=== PATIENT | female | born 1955 | race Caucasian/White ===

== ENCOUNTER 2016-07-09 10:57 | Day surgery (SDC) | payer BC ==
[~2016-07-09 10:57] MED LIST: Betamethasone Acetate/Betamethasone Sod Phosphate 30 MG/5 ML MDV ONE; Lidocaine 2% 5 ML SDV ONE; Ropivacaine 0.5% 5 MG/ML 30 ML SDV ONE
[2016-07-09] MEDS ORDERED: Ropivacaine 0.5% 5 MG/ML 30 ML SDV ONE (11:54)
[2016-07-09] MEDS ORDERED: Betamethasone Acetate/Betamethasone Sod Phosphate 30 MG/5 ML MDV ONE (11:54)
[2016-07-09] MEDS ORDERED: Lidocaine 2% 5 ML SDV ONE (11:54)
--- NOTE | 2016-07-09 21:15 | OR ---
SURGEON: Diamond Paez D.O. DATE OF PROCEDURE: 07/09/2016 OR STAFF PRESENT: 1. Diandra Denis RN. 2. Qi Vanegas RN. PROPERTY AND CASUALTY INSURANCE AGENT: RT Ashlyn. WOUND CLASSIFICATION: I. PREOPERATIVE DIAGNOSES: 1. Failed back surgery syndrome. 2. Chronic pain syndrome. POSTOPERATIVE DIAGNOSES: 1. Failed back surgery syndrome. 2. Chronic pain syndrome. PROCEDURES PERFORMED: 1. Caudal epidural steroid injection under fluoroscopy. 2. Fluoroscopic guidance for needle placement. 3. Local with oral Valium for sedation. SCREENING QUESTIONS: The patient answered "no" to all of the following questions: 1. Are you allergic to latex? 2. Do you have a bleeding disorder? 3. Do you have any current local or systemic infections? 4. Are you taking any anti-inflammatories or blood thinners? 5. Do you have any joint replacements, heart valve replacements, or a pacemaker? DESCRIPTION OF PROCEDURE: The patient had the procedure thoroughly explained including all possible risks, benefits and alternatives. Consent was signed in my clinic indicating understanding and willingness to proceed. The patient presented to [facility] [place] and was escorted to the dressing room to disrobe and change into a hospital gown. Preoperative vital signs were taken and stable. The patient reported that Valium was taken prior to the procedure. The patient was brought back to the procedure room and placed in the prone position on the procedure room table. A pillow was placed under the hips in order to flatten the lumbar lordosis. The back was prepped with ChloraPrep and sterilely draped. All personnel in the operating room were dressed in appropriate attire including surgical scrubs, head and shoe covers. This was to ensure sterility while in the treatment room. During the time fluoroscopy was in use, all personnel in the operating room wore lead childress with thyroid collars. Sterile technique was used throughout the procedure. The patient was awake and conversant throughout the procedure. There was no evidence of infection at the site of needle insertion. Skeletal landmarks were identified under fluoroscopy for the caudal epidural. Skin was anesthetized with 2% lidocaine with a sterile 27-gauge 1.5 inch needle. Then a 20-gauge Tuohy epidural needle was placed in the epidural space with loss of resistance technique under fluoroscopic guidance. No heme, cerebrospinal fluid, or paresthesias were noted. Isovue-200 contrast dye was injected in 0.2 cubic centimeter increments and seen to outline the epidural space in both AP and lateral views. There was no intravascular flow pattern observed under live fluoroscopy. Then 12 milligrams of Celestone was slowly injected after negative aspiration. The patient tolerated the procedure well. Vital signs were stable during and after the procedure. The staff escorted the patient to the recovery area and the patient was released in stable condition after a brief stay in the recovery room monitored by the nurse. The patient was given both oral and written discharge and follow up instructions with recommendation to follow up given for 2-3 weeks. The patient voiced understanding including understanding of those signs and symptoms that would require emergency care. The patient knows how to contact the office if there are any additional problems or questions in the meantime. PREOPERATIVE PAIN: /10. POSTOPERATIVE PAIN: 10. FOLLOWUP: Follow up in the pain clinic in 3 weeks. NILA / ALLISON /[id number] KATHERINE
== END 2016-07-09 12:53 | disposition home or self-care (01) ==
LOC: MW.SDS 10:57
PROVIDERS: ATTEND Anesthesiology
DX: G89.4 Chronic pain syndrome (principal); M96.1 Postlaminectomy syndrome, not elsewhere classified; F41.9 Anxiety disorder, unspecified; E78.00 Pure hypercholesterolemia, unspecified; Z88.1 Allergy status to other antibiotic agents; Z79.899 Other long term (current) drug therapy; Z90.710 Acquired absence of both cervix and uterus; Z98.51 Tubal ligation status; Z98.890 Other specified postprocedural states; F17.200 Nicotine dependence, unspecified, uncomplicated; F31.9 Bipolar disorder, unspecified; M48.06 Spinal stenosis, lumbar region; M51.16 Intervertebral disc disorders with radiculopathy, lumbar region
CPT/HCPCS: 62323; J0702; J2795

== ENCOUNTER 2016-10-20 11:37 | Day surgery (SDC) | payer BC ==
--- NOTE | 2016-10-20 12:05 | PCM.PREANE ---
Preanesthetic Assessment - Anesthesia/Transfusion/Family Hx Anesthesia History: Prior Anesthesia Without Reaction Family History of Anesthesia Reaction: No Transfusion History: No Prior Transfusion(s) Intubation History: Unknown - Review of Systems General: No Symptoms Pulmonary: No Symptoms Cardiovascular: No Symptoms Gastrointestinal: No Symptoms Neurological: No Symptoms Other: Reports: None - Physical Assessment Height: 1.63 m Weight: 74.389 kg ASA Class: 2 Mental Status: Alert & Oriented x3 Airway Class: Mallampati = 2 Dentition: Reports: Dentures (upper) Thyro-Mental Finger Breadths: 2 Mouth Opening Finger Breadths: 3 ROM/Head Extension: Full Lungs: Clear to Auscultation, Normal Respiratory Effort Cardiovascular: Regular Rate, Regular Rhythm - Allergies Allergies/Adverse Reactions: Allergies Allergy/AdvReac Type Severity Reaction Status Date / Time clindamycin Allergy Rash Verified 10/14/16 15:06 doxycycline Allergy Rash Verified 10/14/16 15:06 - Blood Blood Available: No - Anesthesia Plan Pre-Op Medication Ordered: None - Acknowledgements Anesthesia Type Planned: MAC Pt an Appropriate Candidate for the Planned Anesthesia: Yes Alternatives and Risks of Anesthesia Discussed w Pt/Guardian: Yes Pt/Guardian Understands and Agrees with Anesthesia Plan: Yes PreAnesthesia Questionnaire HEENT History: Reports: Cataract, Glaucoma Other HEENT History: uses reading glasses Genitourinary History: Reports: Renal Calculus 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: Musculoskeletal History: Reports: Back Pain, Chronic Other Musculoskeletal History: spinal stenosis Psychiatric History: Reports: Anxiety, Bipolar (affective disorder), Depression - Past Surgical History HEENT Surgical History: Reports: Cataract Surgery, Tonsillectomy Female Surgical History: Reports: Section, Hysterectomy, Kidney stone extraction, Tubal Ligation Other Female Surgeries/Procedures: insertion of Nephrostomy tube Neurological Surgical History: Reports: Discectomy Musculoskeletal Surgical History: Reports: None - SUBSTANCE USE Smoking Status *Q: Current Every Day Smoker Tobacco Use Within Last Twelve Months: Cigarettes Recreational Drug Use History: No - HOME MEDS Home Medications: Home Meds ALPRAZolam [Xanax] 0.5 mg PO TID 10/14/16 [History] Cyclobenzaprine HCl 10 mg PO TID PRN 10/14/16 [History] DULoxetine HCl [Cymbalta] 30 mg PO QAM 10/14/16 [History] DULoxetine HCl [Duloxetine HCl] 60 mg PO BEDTIME 10/14/16 [History] Gabapentin [Neurontin] 300 mg PO TID 10/14/16 [History] Gemfibrozil 600 mg PO BID 10/14/16 [History] Hydrocodone/Acetaminophen [Hydrocodon-Acetaminoph 7.5-325] 1 tab PO Q6H PRN [History] Ibuprofen 800 mg PO ASDIRECTED PRN 10/14/16 [History] Bskmvhmb-Daygutjsbq-Busjztoqig-Baclofen-Cloonadine 1 dose TOP ASDIRECTED [History] Latanoprost [Xalatan 0.005% Ophth Soln] 1 drop EYEBOTH BEDTIME 10/14/16 [History ] QUEtiapine Fumarate [Seroquel Xr] 800 mg PO BEDTIME 10/14/16 [History] Temazepam 60 mg PO BEDTIME 10/14/16 [History] lamoTRIgine 100 mg PO DAILY 10/14/16 [History]
[2016-10-20] MEDS ORDERED: Lidocaine 2% 5 ML SDV ONE ×3 (12:08→13:13)
[2016-10-20] MEDS ORDERED: Betamethasone Acetate/Betamethasone Sod Phosphate 30 MG/5 ML MDV ONE (12:08)
[2016-10-20] MEDS ORDERED: Ropivacaine 0.5% 5 MG/ML 30 ML SDV ONE (12:08)
[2016-10-20 12:12] VITALS: BP 114/82
[2016-10-20] MEDS ORDERED: Lactated Ringers 1,000 ML IV SCH (12:15)
[2016-10-20] MEDS ORDERED: Propofol 200 MG/20 ML SDV ONE ×2 (12:42→13:32)
[2016-10-20] MEDS ORDERED: fentaNYL 100 MCG/2 ML SDV ONE (12:42)
[2016-10-20] MEDS ORDERED: Midazolam 1 MG/ML 2 ML SDV ONE ×2 (12:42→13:06)
--- NOTE | 2016-10-20 14:50 | PCM48HPAN ---
Post Anesthesia Note - EVALUATION WITHIN 48HRS OF ANESTHETIC Vital Signs in Normal Range: Yes Patient Participated in Evaluation: Yes Respiratory Function Stable: Yes Airway Patent: Yes Cardiovascular Function Stable: Yes Hydration Status Stable: Yes Pain Control Satisfactory: Yes Nausea and Vomiting Control Satisfactory: Yes Mental Status Recovered: Yes - COMMENTS/OBSERVATIONS Free Text/Narrative:: Pt doing well. Awake and currently undergoing programing in SDS. Pt was awake enough post procedure to skip PACU. No apparent anesthesia complications.
--- NOTE | 2016-10-20 16:12 | CR ---
EXAMINATION: Thoracic spine HISTORY: Spinal cord stimulator COMPARISON: MRI dated 09/02/2016 TECHNIQUE: 4 fluoroscopic images provided FINDINGS/IMPRESSION: Operative control films demonstrate 2 spinal cord stimulator leads projecting o carroll the midthoracic spine.
--- NOTE | 2016-10-20 19:25 | OR ---
SURGEON: Diamond Paez D.O. DATE OF PROCEDURE: 10/20/2016 OR STAFF PRESENT: 1. Qidali Vanegas. 2. Singh Rey. HANDBELL CHOIR DIRECTOR: Singh Nuñez. TESTER ARMATURE OR FIELDS: RT. Hermann WOUND CLASSIFICATION: I. PREOPERATIVE DIAGNOSES: 1. Failed back surgery syndrome. 2. Chronic pain syndrome. POSTOPERATIVE DIAGNOSIS: 1. Failed back surgery syndrome. 2. Chronic pain syndrome. PROCEDURE PERFORMED: 1. Spinal cord stimulator trial lead placed on the right of T6 2. Spinal cord stimulator trial lead placed to the left at the top of T6 ([employer] 16 electrode Leads x2) 3. Fluoroscopic guidance for needle placement. 4. Local and MAC anesthesia. DESCRIPTION OF PROCEDURE: The patient had the procedure thoroughly explained including risks, benefits, and alternatives. Consent was signed in my clinic indicating understanding and willingness to proceed. The patient presented to [facility] and was escorted to the dressing room to disrobe and change into a hospital gown. Preoperative history and screening were performed by the nurse. Vital signs were taken and stable. The patient was set up with an IV prior to the procedure. The patient was brought back to the procedure room and placed in the prone position on the procedure room table. A pillow was placed under the abdomen in order to flatten the lumbar lordosis. The patient was positioned comfortably and there was no evidence of infection at the sites of needle insertion. The back was prepped with ChloraPrep and sterilely draped. All personnel in the operating room were dressed in appropriate attire including surgical scrubs, head and shoe covers. This was to ensure sterility while in the treatment room. During the time fluoroscopy was in use, all personnel in the operating room wore lead childress with thyroid collars. Sterile technique was used during the procedure. Prior to the start of the procedure, prophylactic antibiotic was administered IV. Skeletal landmarks were identified under fluoroscopic guidance. At all insertion sites, the skin and soft tissues were anesthetized with 2% lidocaine preservative-free with a sterile 27-gauge 1-1/2 inch needle. The epidural space was entered with a 14-gauge Tuohy epidural needle with loss-of- resistance technique. Under live fluoroscopic guidance, the 16 standard contact lead electrodes were advanced approximately to the midline at the middle of the T6 vertebral body on the left and then the right. No CSF, no heme, no paresthesia were noted. Testing by the neuromodulation clinical specialist revealed appropriate coverage of the patient's normal areas of pain. The leads were then secured to the skin with occlusive dressing. No complications were noted throughout the procedure and vital signs were stable. Then the patient was brought to the recovery room in stable condition. At that time, the patient had additional stimulation patterns programmed which covered all the normal areas of pain. The patient tolerated the procedure well and was released home with postoperative instructions for follow up in the clinic. The patient will fill out a pain diary throughout the week of the spinal cord stimulator trial. Additionally, prior to discharge, postoperative instructions were given to the patient and the patient voiced understanding, including understanding of those signs and symptoms that would require emergency care. PREOPERATIVE PAIN: 10/10 POSTOPERATIVE PAIN: Covered by spinal cord stimulation. FOLLOWUP: Follow up in the Pain Clinic for reprogramming in the morning. NILA / ALLISON /[id number] KATHERINE
== END 2016-10-20 15:15 | disposition home or self-care (01) ==
LOC: MW.SDS 11:37
PROVIDERS: ATTEND Anesthesiology
DX: G89.4 Chronic pain syndrome (principal); M96.1 Postlaminectomy syndrome, not elsewhere classified; F39 Unspecified mood [affective] disorder; F41.9 Anxiety disorder, unspecified; E78.00 Pure hypercholesterolemia, unspecified; M51.16 Intervertebral disc disorders with radiculopathy, lumbar region; M48.06 Spinal stenosis, lumbar region; F17.210 Nicotine dependence, cigarettes, uncomplicated; Z88.1 Allergy status to other antibiotic agents; Z88.6 Allergy status to analgesic agent; Z79.891 Long term (current) use of opiate analgesic; Z79.899 Other long term (current) drug therapy; Z87.01 Personal history of pneumonia (recurrent); Z87.442 Personal history of urinary calculi; Z98.51 Tubal ligation status; Z90.710 Acquired absence of both cervix and uterus; Z90.89 Acquired absence of other organs; Z98.890 Other specified postprocedural states
CPT/HCPCS: 63650; 76000; C1778; J0690; J2250; J3010; J7120; 00300; J0702; J2704; J2795